=== PATIENT | male | born 1995 | race Caucasian/White ===

== ENCOUNTER 2021-08-23 06:00 | Outpatient (RCR) | payer BC, SELFPAY | END 2021-08-29 23:59 | disposition home or self-care (01) | LOC: GPT 06:00 | PROVIDERS: Family Provider Family Medicine; PCP Family Medicine; Referring Provider Registered Nurse; Visit Provider Registered Nurse | DX: S32.039D Unspecified fracture of third lumbar vertebra, subsequent encounter for fracture with routine healing (principal); X58.XXXD Exposure to other specified factors, subsequent encounter; M54.50 Low back pain, unspecified | CPT/HCPCS: 97110; 97140; 97161 ==

== ENCOUNTER 2021-08-30 06:00 | Outpatient (RCR) | payer BC, SELFPAY | END 2021-09-29 23:59 | disposition home or self-care (01) | LOC: GPT 06:00 | PROVIDERS: Family Provider Family Medicine; PCP Family Medicine; Referring Provider Registered Nurse; Visit Provider Registered Nurse | DX: S32.039A Unspecified fracture of third lumbar vertebra, initial encounter for closed fracture (principal); X58.XXXA Exposure to other specified factors, initial encounter; M54.50 Low back pain, unspecified | CPT/HCPCS: 97110; 97140; 97530; G0283 ==

== ENCOUNTER 2021-09-30 06:00 | Outpatient (RCR) | payer BC, SELFPAY | END 2021-10-30 23:59 | disposition home or self-care (01) | LOC: GPT 06:00 | PROVIDERS: PCP Family Medicine; Referring Provider Registered Nurse; Visit Provider Registered Nurse | DX: M54.50 Low back pain, unspecified (principal) | CPT/HCPCS: 97110; 97140; 97164 ==

== ENCOUNTER → 2021-10-15 15:08 | Outpatient (BNVA) | payer BC, SELFPAY | PROVIDERS: PCP Family Medicine; Visit Provider Nurse Practitioner Family | DX: Z20.822 Contact with and (suspected) exposure to COVID-19 (principal); R50.9 Fever, unspecified | CPT/HCPCS: 87426 ==

== ENCOUNTER → 2021-10-25 13:57 | Outpatient (BNVA) | payer BC, SELFPAY | PROVIDERS: PCP Family Medicine; Visit Provider Family Medicine | DX: Z20.822 Contact with and (suspected) exposure to COVID-19 (principal) | CPT/HCPCS: 87426 ==

== ENCOUNTER 2021-10-31 06:00 | Outpatient (RCR) | payer BC, SELFPAY | END 2021-11-25 23:59 | disposition home or self-care (01) | LOC: GPT 06:00 | PROVIDERS: PCP Family Medicine; Visit Provider Registered Nurse | DX: S32.039D Unspecified fracture of third lumbar vertebra, subsequent encounter for fracture with routine healing (principal); X58.XXXD Exposure to other specified factors, subsequent encounter; M54.9 Dorsalgia, unspecified | CPT/HCPCS: 97110; 97140; 97535 ==

== ENCOUNTER → 2023-01-01 11:57 | Outpatient (BNVA) | payer BC, SELFPAY | PROVIDERS: PCP Family Medicine; Visit Provider Nurse Practitioner Family | DX: R07.0 Pain in throat (principal) | CPT/HCPCS: 87071; 87400; 87426; 87880 ==

== ENCOUNTER → 2023-03-03 15:37 | Outpatient (BNVA) | payer BC, SELFPAY | PROVIDERS: PCP Family Medicine; Visit Provider Nurse Practitioner Family | DX: R05.9 Cough, unspecified (principal); R10.9 Unspecified abdominal pain; K59.00 Constipation, unspecified | CPT/HCPCS: 74018; 87426 ==

== ENCOUNTER → 2023-04-17 15:52 | Outpatient (BNVA) | payer BC, SELFPAY | PROVIDERS: PCP Family Medicine; Visit Provider Family Medicine | DX: R05.9 Cough, unspecified | CPT/HCPCS: 87071; 87400; 87880 ==